=== PATIENT | male | born 1990 | race Caucasian/White ===

== ENCOUNTER 2017-04-28 23:41 | Inpatient (IN) ==
[2017-04-29] MEDS ORDERED: Sodium Chloride 0.9% 1,000 ML PRIMARY IV ONE ×3 (00:11→04:49)
[2017-04-29] MEDS ORDERED: NORMAL SALINE 10 ML SYRINGE FLUSH IVP PRN ×2 (00:11→04:49)
[2017-04-29] MEDS ORDERED: ONDANSETRON 4 MG/2 ML VIAL IVP ONE ×2 (00:11→03:21)
[2017-04-29 01:19] LABS: BUN/CREATININE RATIO 13.75 (6-20); SERUM ALBUMIN 5.9 g/dL (3.5-4.8)
[2017-04-29 01:22] LABS: BASOPHILS # (AUTO) 0.01 10*3/UL; BASOPHILS % (AUTO) 0.1 % (0-1); EOSINOPHILS # (AUTO) 0.02 10*3/UL; EOSINOPHILS % (AUTO) 0.1 % (0-8); Hematocrit [HCT] 57.1 % (42.0-52.0); Hemoglobin [HGB] 20.1 g/dL (14.0-18.0); LYMPHOCYTES # (AUTO) 0.39 10*3/uL; MEAN CORPUSCULAR HEMOGLOBIN 30.5 PG (27-31); MEAN CORPUSCULAR HGB CONC 35.2 g/dL (33-37); MEAN CORPUSCULAR VOLUME 86.8 FL (80-90); MEAN PLATELET VOLUME 10.7 FL (7.4-12.2); MONOCYTES # (AUTO) 0.73 10*3/UL (0.3-0.8); MONOCYTES % (AUTO) 4.6 % (5-15); NEUTROPHILS # (AUTO) 14.64 10*3/UL; NEUTROPHILS % (AUTO) 92.3 % (50-80); RED BLOOD COUNT 6.58 10^6/uL (4.70-6.10)
[2017-04-29 01:46] LABS: BILIRUBIN,URINE LARGE (NEG); CLARITY,URINE CLEAR (CLEAR); COLOR,URINE YELLOW (Y); GLUCOSE, URINE (UA) NEGATIVE (NEG); OCCULT BLOOD,URINE Trace-intact (NEG); PROTEIN,URINE >300 mg/dl (NEG)
[2017-04-29 01:47] LABS: URINE SAMPLE TYPE CLEAN CATCH URINE; URINE SPECIFIC GRAVITY - MAN 1.027
[2017-04-29 01:48] LABS: BACTERIA,URINE MODERATE; RENAL EPITHELIAL CELLS,URINE RARE; SQUAMOUS EPITHELIAL CELL,UR RARE; URINE CASTS MODERATE
[2017-04-29 02:11] LABS: PLATELET MORPHOLOGY COMMENT NORMAL MORPHOLOGY (NORM); RBC MORPHOLOGY COMMENT NORMAL MORPHOLOGY (NORM); WBC MORPHOLOGY COMMENT NORMAL MORPHOLOGY (NORM)
[2017-04-29] MEDS ORDERED: ONDANSETRON 4 MG/2 ML VIAL IVP PRN (04:49)
[2017-04-29] MEDS ORDERED: LIDOCAINE W/ SODIUM BICARB 0.5 ML SYR SUBD PRN (04:49)
[2017-04-29] MEDS ORDERED: HYDROmorphone 2 MG/1 ML IVP PRN (04:49)
[2017-04-29] MEDS ORDERED: Sodium Chloride 0.9% 1,000 ML ONE (05:23)
[2017-04-29 05:41] LABS: BASOPHILS # (AUTO) 0.01 10*3/UL; BASOPHILS % (AUTO) 0.1 % (0-1); EOSINOPHILS # (AUTO) 0.01 10*3/UL; EOSINOPHILS % (AUTO) 0.1 % (0-8); Hematocrit [HCT] 50.3 % (42.0-52.0); Hemoglobin [HGB] 17.5 g/dL (14.0-18.0); LYMPHOCYTES # (AUTO) 0.28 10*3/uL; MEAN CORPUSCULAR HEMOGLOBIN 30.8 PG (27-31); MEAN CORPUSCULAR HGB CONC 34.8 g/dL (33-37); MEAN CORPUSCULAR VOLUME 88.4 FL (80-90); MONOCYTES # (AUTO) 0.37 10*3/UL (0.3-0.8); MONOCYTES % (AUTO) 2.9 % (5-15); NEUTROPHILS % (AUTO) 94.5 % (50-80); RED BLOOD COUNT 5.69 10^6/uL (4.70-6.10)
[2017-04-29] MEDS: Sodium Chloride 0.9% 1,000 ML PRIMARY IV SCH ×4 (05:42→20:33)
[2017-04-29 05:50] LABS: BLOOD UREA NITROGEN 23 mg/dL (7-22); BUN/CREATININE RATIO 17.69 (6-20)
[2017-04-29 06:24] LABS: PLATELET MORPHOLOGY COMMENT NORMAL MORPHOLOGY (NORM); RBC MORPHOLOGY COMMENT NORMAL MORPHOLOGY (NORM); WBC MORPHOLOGY COMMENT NORMAL MORPHOLOGY (NORM)
[2017-04-29] MEDS ORDERED: metroNIDAZOLE 500mg (Premix) 500 MG/100 ML BAG IV SCH (07:00)
[2017-04-29 07:08] LABS: Erythrocyte Sediment Rate 1 MM/HR (0-15)
--- NOTE | 2017-04-29 07:10 | PDOC ---
Nausea/Vomiting/Diarrhea HPI - General Chief Complaint: Nausea / Vomiting / Diarrhea Stated Complaint: NAUSEA, VOMITING AND DIARRHEA Date Seen by Provider: 04/28/17 Time Seen by Provider: 23:55 Source: POSITIVE: Patient Exam Limitations: POSITIVE: No limitations Nurse's Notes Reviewed & Considered: Yes - History of Present Illness Initial Comments: The patient is a 26-year-old male. He presents to the emergency room complaining of a 100-1/2 day history of diarrhea. He's also had vomiting for the past 6 hours. He states he thinks there is some blood in his stool. He states his bowel movements are watery. No hematemesis. No fevers. Some abdominal cramping. No melena. No hematochezia. No dysuria or hematuria. He has no history of previous abdominal surgery. Body Location Affected: REPORTS: Abdomen Timing: REPORTS: Gradual, Getting Worse Duration: >24 hours (Approximately 1-1/2 days) Severity: Severe (He states his diarrhea has been severe.) Quality: DENIES: Aching, Burning, Cramping, Dullness, Fullness, "Pain", Sharpness, Stabbing, Throbbing, Tenderness, Itching, Pressure, Other Abdominal Pain Onset Location: DENIES: RUQ, LUQ, RLQ, LLQ, Epigastric, Periumbilical, Suprapubic, Generalized abdomen, Flank, Other Abdominal Pain Radiation: REPORTS: No radiation Context: REPORTS: None Modifying Factors: improves with: Defecating, Vomiting Associated Symptoms: REPORTS: Vomiting, Copious Diarrhea, Blood-Streaked Diarrhea, Watery Diarrhea Similar Symptoms Previously: Yes (states he had one similar episode, in which she became dehydrated) Recent Care Received: REPORTS: Denies Any Prior Injuries Related to Current Complaint?: No - Patient Allergies Allergies/Adverse Reactions: Allergies 3 Allergy/AdvReac Type Severity Reaction Status Date / Time No Known Allergies Allergy Unverified 08/15/15 10:45 Past Medical History - heen HEENT History: Denies History Cardiovascular History: Denies History Respiratory History: Denies History Gastrointestinal History: Denies History Genitourinary History: Denies History Endocrine History: Denies History Musculoskeletal History: Denies History Prosthesis or Implant: No Neurological History: Denies History Blood Disorders: Denies History Psychiatric History: Denies History History of Sexually Transmitted Diseases: No Cancer History: Denies History In Past Year Been Physically Harmed or Verbally Threatened: No History of MDRO: No History of Other Communicable Diseases: No Tobacco Use: Never Smoker Type of alcohol normally used: Beer In the Past 12 Months, Have Used or Abuse Any Substance: None Previous Surgical History: Yes Type / Date of Surgery: RT. ELBOW Anesthesia Reactions: No Significant Family History: No pertinent family hx Past Medical History Reviewed: Reviewed - No Changes ROS - Limitations ROS Limitations: No Limitations Constitution: REPORTS: Denies Symptoms Cardiovascular: REPORTS: Denies Cardiac Symptoms Respiratory: REPORTS: Denies Resp Symptoms Neurological: REPORTS: Denies Neuro Symptoms Gastrointestinal: REPORTS: Nausea, Vomitting, Diarrhea Endocrine: REPORTS: Denies Symptoms Musculoskeletal: REPORTS: Denies MS Symptoms Genitourinary: REPORTS: Denies Symptoms Eyes: REPORTS: Denies Symptoms ENT: REPORTS: Denies Symptoms Skin: REPORTS: Denies Skin Symptoms Lympathic: REPORTS: Denies Lympathic Symptoms Immunologic: POSITIVE: Denies Symptoms Psychiatric: POSITIVE: Denies Psych Symptoms Nausea/Vomiting/Diarrhea Exam - General Appearance General Appearance: POSITIVE: Alert, Cooperative, No Acute Distress, No Evidence of Trauma - HEENT HEENT: POSITIVE: Head Inspection Nml, Eyes Inspection Nml, Ears Inspection Nml, Nose Inspection Nml, Oral/Dental Inspect. Nml, Pharynx Inspect. Nml, PERRL, EOMI - Neck Neck: POSITIVE: Supple, Normal Inspection, Non Tender - Respiratory Respiratory: POSITIVE: No Respiratory Distress, Breath Sounds Normal, Chest Non- Tender - Cardiovascular Cardiovascular: POSITIVE: Regular Rate and Rhythm, Heart Sounds Normal, Equal Pulses, Strong Pulses Peripheral Pulses: Radial (R): 2+, Radial (L): 2+ - Chest Chest: POSITIVE: Non Tender - Abdomen Abdomen: Soft: (All Quadrants), Normal Bowel Sounds: (All Quadrants), Denies Tenderness: (All Quadrants), No Splenomegaly: (All Quadrants), No Hepatomegaly: (All Quadrants), No Guarding: (All Quadrants), No Rebound: (All Quadrants), No Palpable Pulse: (All Quadrants), No Palpabale Mass: (All Quadrants), No Distention: (All Quadrants), No Rigidity: (All Quadrants) - Back Back: POSITIVE: Normal Inspection - Skin Skin: POSITIVE: Intact, Normal For Race, Warm, Dry, No Rash - Extremities Extremity: Non-Tender: (All Extremities), Normal ROM: (All Extremities), Normal Inspection: (All Extremities) - Neurological / Psychological Neurological: POSITIVE: Affect Apporpriate, Oriented X3, it professional Normal As Tested, Motor Normal, Sensation Normal N/V/D Progress - Results Reviewed by me Lab Results Reviewed by Me: Yes (stool leukocytes negative. Culture pending. C. difficile negative) CBC and BMP: 04/29/17 05:30 04/29/17 05:30 - Patient's Progress Pain Medication Addressed: POSITIVE: Not Applicable School/Work Release Addressed: POSITIVE: Not Applicable Re-examine Time: 03:40 Re-Examine Comment: Patient hydrated with somewhat in excess of 2 L in the emergency room. His nausea seemed controlled with Zofran. He's had 3 or 4 watery bowel movements in the emergency room. White blood cell count 15,850. Hemoglobin 12.1 hematocrit 57.1. Urine is concentrated. Status: POSITIVE: Improved, Re-Examined - Consult Consult (If Yes, Name of Consulting MD & Time Called): Yes (Dr. Alonso, hospitalist,[id number]) Consulting MD will see pt:: POSITIVE: [facility] [place] Ad[place] Counseled: POSITIVE: Patient, RE: Lab Results, RE: DX, RE: Need for F/U Patient Care Time - Estimated PCT Patient Care Time (In Minutes): 60 Vital Signs - Recent Vital Signs Vital Signs: Vital Signs (Last 8 hours) Temp Pulse Pulse Pulse Resp BP BP 04/29/17 05:00 99.0 F 123 H 20 04/29/17 04:58 98.4 F 110 H 97 18 103/71 100/81 BP Pulse Ox 04/29/17 05:00 116/71 93 04/29/17 04:58 96 - VS Reviewed Vital Signs Reviewed: Yes Discharge Clinical Impression: Nausea and vomiting, Diarrhea, Dehydration Discharge Disposition: Admit to Inpatient Condition: Good Date Decision to Admit to Inpatient: 04/29/17 Time Decision to Admit to Inpatient: 03:40
[2017-04-29] MEDS ORDERED: ACIDOPHILUS/BULGARICUS CHEWABLE TABLET PO ONE (08:52)
[2017-04-29] MEDS: ACIDOPHILUS/BULGARICUS CHEWABLE TABLET PO SCH ×3 (10:36→20:32)
--- NOTE | 2017-04-29 12:38 | PDOC ---
HPI - History of Present Illness History of Present Illness: Is a very nice 26-year-old gentleman who works in her on [place]. He started having the diarrhea 1 day ago but last evening he got really worse and the was seen in the ER where he was admitted for bloody diarrhea after further testing it was positive for Giardia. He also had some prerenal acute renal failure from his diarrhea. He has not been camping what was fishing 4 days ago and he did put the fishing lead in his mouth out of the river. I will also told him that the test is well water [place] the ranch but he says nobody else was sick. He is much improved this morning. Past Medical History Medical History: None Tobacco Use: Never Smoker Do you dip or chew tobacco: Yes (3/4 CAN PER DAY) In the Past 12 Months, Have Used or Abuse Any of the Following Substance: None Alcohol Use: None Medication / Allergies Allergies/Adverse Reactions: Allergies 3 Allergy/AdvReac Type Severity Reaction Status Date / Time No Known Allergies Allergy Unverified 08/15/15 10:45 Review of Systems - Review of Systems All Systems: Reviewed & No Additional Complaints Except as Stated - Respiratory Respiratory: DENIES: Negative System Review, Cough, Sputum, Dyspnea At Rest, Dyspnea with Exertion, Pleuritic Pain, Hemoptysis, Wheezing, Other, See HPI - Cardiovascular Cardiovascular: DENIES: Negative System Review, Chest Pain, Edema, Syncope, Palpitations, Orthopnea, Paroxysmal Nocturnal Dyspnea, Other, See HPI - Gastrointestinal Gastrointestinal / Abdominal: REPORTS: Nausea, Diarrhea Exam - Vitals Vital Signs: Vital Signs Temperature 99 F Temperature Source Oral Pulse Rate [Pulse Oximeter 97 Left] Pulse Rate [Pulse Oximeter] 102 Pulse Rate 110 Respiratory Rate 18 Blood Pressure [Left Arm] 126/56 Blood Pressure [Right Arm] 116/71 Blood Pressure 103/71 Pulse Ox 94 Oxygen Delivery Method Room Air Height 6 ft 5 in Weight 235 lb 3.2 oz - General General Appearance: No Acute Distress, Cooperative - Head Head Exam: Normal Inspection, Normocephalic, Atraumatic - Eye Eye Exam: POSITIVE: Normal Appearance, PERRL, EOMI, No Scleral Icterus - Neck Neck Exam: Normal Inspection, Full ROM, No Tenderness, No Lymphadenopathy, No Thyromegaly, JVP is not Raised - Respiratory Respiratory Exam: POSITIVE: Clear to Auscultation - Bilaterally, Breathing Non Labored, Normal To Percussion, Normal to Percussion and Palpation - Cardiovascular Cardiovascular Exam: POSITIVE: RRR, No Murmur, No Clicks, No Gallops, No Rubs, PMI Non-Displaced - GI/Abdominal GI/Abdominal Exam: POSITIVE: Normal Bowel Sounds, Non Tender, Non Distended, Soft, No Masses, No Hepatomegaly, No Splenomegaly, No Organomegaly - Extremities Extremities Exam: POSITIVE: Normal Inspection, Full ROM, Normal Capillary Refill , No Clubbing Present, No Edema Present, No Cyanosis Present, Negative Davide's sign, Dosalis Pedis Pulses - Stong & Regular Results - Labs CBC and BMP: 04/29/17 05:30 04/29/17 05:30 Assessment and Plan - Patient Problems (1) Giardial colitis Current Visit: Yes Status: Acute Code(s): A07.1 - Giardiasis [lambliasis] (2) Dehydration Current Visit: Yes Status: Acute Code(s): E86.0 - Dehydration (3) Diarrhea Current Visit: Yes Status: Acute Code(s): R19.7 - Diarrhea, unspecified (4) Nausea and vomiting Current Visit: Yes Status: Acute Code(s): R11.2 - Nausea with vomiting, unspecified (5) Acute renal failure Current Visit: Yes Status: Acute Code(s): N17.9 - Acute kidney failure, unspecified - Assessment / Plan Additional Assessment/Plan Details: #1 discharge enteritispatient received IV Flagyl will switch over to 500 by mouth 3 times a day patient is feeling much better his white count is decreased #2 acute renal failure most likely prerenal from severe dehydration continue IV fluids creatinine is improving BUN is following #3 nausea and vomiting improving continue antiemetics when needed
[2017-04-29] MEDS ORDERED: NICOTINE 21 MG /DAY PATCH TRANSDERM ONE (13:23)
[2017-04-29] MEDS: ACETAMINOPHEN 325 MG TABLET PO PRN ×2 (13:29→17:46)
[2017-04-29] MEDS: Loperamide Tab 2 MG TABLET PO PRN ×2 (13:33→19:12)
[2017-04-29] MEDS ORDERED: metroNIDAZOLE Tab 500 MG TAB PO SCH (15:00)
[2017-04-29] MEDS: metroNIDAZOLE 500mg (Premix) 500 MG/100 ML BAG IV SCH (23:59)
[2017-04-30] MEDS ORDERED: IBUPROFEN 400 MG TABLET PO ONE ×2 (00:34→00:35)
[2017-04-30 05:24] LABS: BLOOD UREA NITROGEN 10 mg/dL (7-22); BUN/CREATININE RATIO 11.11 (6-20); SERUM ALBUMIN 3.8 g/dL (3.5-4.8)
[2017-04-30 05:28] LABS: BASOPHILS # (AUTO) 0.02 10*3/UL; BASOPHILS % (AUTO) 0.4 % (0-1); EOSINOPHILS # (AUTO) 0.05 10*3/UL; EOSINOPHILS % (AUTO) 1.1 % (0-8); Hemoglobin [HGB] 15.2 g/dL (14.0-18.0); LYMPHOCYTES # (AUTO) 1.39 10*3/uL; MEAN CORPUSCULAR HEMOGLOBIN 30.8 PG (27-31); MEAN CORPUSCULAR HGB CONC 34.5 g/dL (33-37); MEAN CORPUSCULAR VOLUME 89.2 FL (80-90); MEAN PLATELET VOLUME 10.3 FL (7.4-12.2); MONOCYTES # (AUTO) 0.54 10*3/UL (0.3-0.8); MONOCYTES % (AUTO) 11.5 % (5-15); NEUTROPHILS # (AUTO) 2.67 10*3/UL; NEUTROPHILS % (AUTO) 57.1 % (50-80); RED BLOOD COUNT 4.93 10^6/uL (4.70-6.10)
[2017-04-30 05:31] LABS: PLATELET MORPHOLOGY COMMENT NORMAL MORPHOLOGY (NORM); RBC MORPHOLOGY COMMENT NORMAL MORPHOLOGY (NORM); WBC MORPHOLOGY COMMENT NORMAL MORPHOLOGY (NORM)
[2017-04-30] MEDS: Sodium Chloride 0.9% 1,000 ML PRIMARY IV SCH (06:02)
[2017-04-30] MEDS: metroNIDAZOLE 500mg (Premix) 500 MG/100 ML BAG IV SCH (08:03)
[2017-04-30 08:12] VITALS: BP 110/57; RESP 18; TEMP 97; O2SAT 96
--- NOTE | 2017-04-30 08:55 | DCSUMMARY ---
Hospitalization Summary Discharge Date: 04/30/17 Primary Diagnosis:: giardia enteritis Hospital Course: Final Discharge Diagnosis: Giardia enteritis Dehydration Acute renal failure Hypokalemia Diagnostic Data, Laboratory Data, and Procedures of Signifigance: CBC and BMP 04/30/17 04:24 04/30/17 04:24 History and Physical pertinent to Admission: Course of Hospitalization: Is a very nice 26-year-old gentleman who was admitted to the hospital for severe diarrhea tested positive for Giardia was treated with the Flagyl. His diarrhea improved throughout his hospital stay because of his severe dilated dehydration and acute renal failure he was rehydrated aggressively with resolution of his the renal failure and dehydration with normal creatinine and BUNs today. He did have a positive blood culture but this was a contaminant I visited with Dr. Velasco on the phone she will be discharged in stable and improved condition with Flagyl for 7 more days 500 3 times a day prescription was called in at the pharmacy also he was given Zofran in case of nausea and vomiting. He was advised to check his well water he told me that his boss is already doing this which could've been the cause of his Giardia I advised to drink bottled water until this is resolved. He did have proteinuria and some blood in the urine I advised the patient to follow-up with his primary care physician as an outpatient after he is well to recheck a UA he said he would do this he would call the [facility] office and schedule an appointment he did receive potassium 40 mEq this morning before leaving the hospital and advised him to eat bananas over the next 2 or 3 days and to buy some potassium supplements. On the date of discharge, the patient was examined: Gen.: No acute distress, alert, nontoxic Heart: Regular rate and rhythm, no murmurs, clicks, gallops, or rubs Lungs: Clear to auscultation bilaterally, breathing is nonlabored Abdomen/GI: Normal tones on auscultation, soft, nontender, nondistended Musculoskeletal/extremities: No clubbing, cyanosis, or edema Vitals reviewed and are listed below Vital Signs (24 hrs) Temp Pulse Pulse Resp BP Pulse Ox 04/30/17 08:10 97 F 62 18 110/57 96 04/30/17 07:00 65 04/30/17 04:46 97.2 F 64 16 110/59 97 04/30/17 00:53 98.9 F 70 16 121/69 97 04/29/17 21:00 97.7 F 84 16 124/60 96 04/29/17 19:00 81 04/29/17 17:00 97.8 F 81 16 119/70 95 04/29/17 13:00 98.6 F 97 16 120/68 95 Assessment and Plan: 1. As per discharge assessments above 2. Disposition: Home 3. Condition on discharge, stable and improved. 4. Diet: regular diet 5. Activities: resume normal activities 6. Follow-Up: 1. PCP in a few days after he is well 2. 7. Medications at the Time of Discharge: Home Medications 3 Medication Instructions Recorded Confirmed Type Ondansetron HCl [Zofran] 4 mg PO BID PRN #6 tab 04/30/17 Rx metroNIDAZOLE Tab [Flagyl Tab] 500 mg PO Q8H #21 tab 04/30/17 Rx 8. Time, care, counseling and coordination of care for this discharge is greater than 30 minutes. Exam - Vitals Vital Signs: Vital Signs Temperature 97 F Temperature Source Temporal Artery Scan Pulse Rate [Pulse Oximeter 62 Left] Pulse Rate [Pulse Oximeter] 64 Pulse Rate 110 Respiratory Rate 18 Blood Pressure [Left Arm] 110/57 Blood Pressure [Right Arm] 116/71 Blood Pressure 103/71 Pulse Ox 96 Oxygen Delivery Method Room Air Height 6 ft 5 in Weight 234 lb 9.6 oz Patient Problems - Patient Problem List (1) Giardial colitis Status: Acute Code(s): A07.1 - Giardiasis [lambliasis] Category: Medical (2) Dehydration Status: Acute Code(s): E86.0 - Dehydration Category: Medical (3) Diarrhea Status: Acute Code(s): R19.7 - Diarrhea, unspecified Category: Medical (4) Nausea and vomiting Status: Acute Code(s): R11.2 - Nausea with vomiting, unspecified Category: Medical (5) Acute renal failure Status: Acute Code(s): N17.9 - Acute kidney failure, unspecified Category: Medical
[2017-04-30] MEDS ORDERED: metroNIDAZOLE Tab 500 MG TAB PO SCH (09:00)
[2017-04-30] MEDS: ACIDOPHILUS/BULGARICUS CHEWABLE TABLET PO SCH (09:35)
[2017-04-30] MEDS ORDERED: POTASSIUM CHLORIDE 20 MEQ TAB PO ONE (10:14)
[2017-04-30] MEDS ORDERED: POTASSIUM CHLORIDE 20 MEQ TAB PO SCH (17:00)
[2017-05-04 06:54] LABS: NEUTROPHIL SPECIFIC ANTIBODIES Negative (Negative)
== END 2017-04-30 10:40 | disposition home or self-care (01) | DRG 372 ==
LOC: ER 23:41 → MED/SURG 04-29 03:48
PROVIDERS: ADMIT Family Medicine; ATTEND Family Medicine